=== PATIENT | male | born 1975 | race Caucasian/White ===

== ENCOUNTER → 2020-01-19 | Outpatient (CLI) | payer OTHER ==
--- NOTE | 2020-01-19 16:28 | RAD ---
Examination: TESTICULAR/SCROTUM History: Epididymal mass Comparison/Correlation: None Findings: Right testicle measures 4 x 1 cm x 3.6 cm by 2.4 cm. Left testicle measures 4.4 cm x 3 cm x 2.3 cm. Normal echotexture. Normal flow is evident involving the testicles. There is no right epididymal mass or suspicious cystic structure seen. Left epididymis is unremarkable with no mass. Few small cysts or spermatoceles are suggested. Very small bilateral hydroceles suggested. Small right varicocele suggested on Valsalva imaging. Impression: No mass. Flow is unremarkable with no suggestion of torsion or epididymoorchitis. Small right varicocele suggested. Electronically signed by: Shar Wheeler MD (01/19/2020 4:25 PM) [id number]
== END | disposition home or self-care (01) ==
LOC: US 14:41
PROVIDERS: ATTEND Family Medicine
DX: N50.89 Other specified disorders of the male genital organs (principal)
CPT/HCPCS: 76870

== ENCOUNTER → 2020-08-01 | Outpatient (CLI) | payer OTHER ==
--- NOTE | 2020-08-01 09:01 | RAD ---
Examination: ABDOMEN COMPLETE History: GENRALIZED ABD PAIN Comparison/Correlation: None Findings: Complete upper abdominal ultrasound exam was performed. Diffuse fatty infiltration of the liver is present. Portal venous flow is unremarkable. Gallbladder normal. Right kidney measures approximately 12.3 cm x 5.7 cm x 4.9 cm. Left kidney measures 13.3 cm x 6.7 cm x 5.4 cm. No hydronephrosis. Renal contours are unremarkable. Spleen is unremarkable. Proximal pancreas is normal. Distal pancreas is obscured by bowel gas. Visualized abdominal aorta and inferior vena cava are unremarkable. No upper abdominal ascites. Impression: Fatty infiltration of the liver. Electronically signed by: Shar Wheeler MD (08/01/2020 8:57 AM) [id number]
== END ==
LOC: US 06:40
PROVIDERS: ATTEND Family Medicine
DX: K76.0 Fatty (change of) liver, not elsewhere classified (principal)
CPT/HCPCS: 76700

== ENCOUNTER → 2020-11-15 | Outpatient (CLI) | payer OTHER | LOC: RT 06:02 | PROVIDERS: ATTEND Family Medicine | DX: Z13.9 Encounter for screening, unspecified (principal) | CPT/HCPCS: G0399 ==

== ENCOUNTER → 2020-12-20 | Outpatient (CLI) | payer OTHER ==
--- NOTE | 2020-12-21 14:59 | SLEEP ---
DATE OF STUDY: 12/20/2020 ATTENDING PHYSICIAN: Dr. Dangelo Fam. The patient is a 45 years old, who weighs 233 pounds with a BMI of 34. The patient had a previous home sleep study and was found to have moderate CONSUELO with an AHI of 16.8 per hour. The patient was referred to [facility] for a CPAP titration study. During the night study, the patient spent 412 minutes in bed and slept for 296 minutes with a sleep efficiency of 72%. Sleep latency was 16 minutes with a REM latency of 158 minutes. Sleep architecture showed increased stage 1 sleep, normal stage 2 sleep, normal slow wave and normal REM sleep. EKG monitoring revealed mean heart rate of 74 beats per minute. Occasional PVC seen. No sustained arrhythmias observed. PLMs were seen at an index of 8 per hour and 1 per hour caused EEG arousal. The patient was started on CPAP at 5 cm water and titrated up to 9 cm water. At the final pressure, the patient slept for 135 minutes. The patient had lateral REM sleep. The patient's AHI was reduced to 1 per hour and oxygen saturation remained above 92%. IMPRESSION: 1. Moderate apnea, diagnosed by home sleep study. 2. No clinically significant periodic limb movements. RECOMMENDATIONS: 1. CPAP at 9 cm water completely eliminated the patient's sleep apnea and should be used on a nightly basis. The patient to use medium size nasal pillows. 2. Follow up in 4-6 weeks to assess compliance with CPAP and to document clinical improvement. 3. Weight loss is advised. 4. Avoid [employer] depressants. 5. Cautioned regarding driving until symptoms of sleep apnea resolve with the use of CPAP. CLAUDE/ZULEYMA/MARYLIN DR: Carlos TID: [id number] CC: Kirill NICOLE MD
== END ==
LOC: RT 19:05
PROVIDERS: ATTEND Family Medicine
DX: G47.33 Obstructive sleep apnea (adult) (pediatric) (principal)
CPT/HCPCS: 95811